=== PATIENT | male | born 1985 | race Caucasian/White ===

== ENCOUNTER 2018-01-15 05:47 | Day surgery (SDC) | payer BC ==
[2018-01-15] MEDS ORDERED: MIDAZOLAM 1 MG/ML 2 ML INJ ×2 (09:12)
[2018-01-15] MEDS ORDERED: FENTAnyl 50 MCG/ML VIAL (09:12)
== END 2018-01-15 11:15 | disposition home or self-care (01) ==
LOC: GIL 05:47
DX: K62.5 Hemorrhage of anus and rectum (principal); K64.9 Unspecified hemorrhoids
CPT/HCPCS: 45378